=== PATIENT | male | born 1970 | race Caucasian/White ===

== ENCOUNTER 2016-10-26 11:28 | Emergency (ER) | payer MEDICARE, OTHER ==
[~2016-10-26 11:28] MED LIST: BACTRIM DS TAB1 EACH PO; CELEXA40 MG PO; ELAVIL25 MG PO; FLOMAX0.4 MG PO; HCTZ25 MG PO; HYDROCODON-ACE1 EAC6 PO; LEVEMIR100 UNIT/1 SQ; NEURONTIN800 MG PO; NITROQUICK0.4 MG SL; NOVOLOG100 UNIT/2 SQ; PROMETHAZINE12.5 M1 PO; VERAPAMIL ER120 M1 PO; XANAX0.5 MG PO; XYZAL5 MG PO; ZANAFLEX4 MG PO; ZESTRIL20 M1 PO; ZOCOR20 MG PO
== END 2016-10-26 12:56 | disposition home or self-care (01) ==
LOC: ER 11:28
DX: L02.414 Cutaneous abscess of left upper limb (principal); E11.9 Type 2 diabetes mellitus without complications; I10 Essential (primary) hypertension; Z86.14 Personal history of Methicillin resistant Staphylococcus aureus infection; F11.20 Opioid dependence, uncomplicated; F32.9 Major depressive disorder, single episode, unspecified; G89.4 Chronic pain syndrome; F17.220 Nicotine dependence, chewing tobacco, uncomplicated; Z79.899 Other long term (current) drug therapy; Z79.4 Long term (current) use of insulin
CPT/HCPCS: 10061; 87070; 87186; 99070; 99282-25; 99283

== ENCOUNTER 2016-10-27 09:33 | Emergency (ER) | payer MEDICARE, OTHER | END 2016-10-27 09:55 | disposition home or self-care (01) | LOC: ER 09:33 | DX: Z48.817 Encounter for surgical aftercare following surgery on the skin and subcutaneous tissue (principal); Z79.4 Long term (current) use of insulin; Z79.899 Other long term (current) drug therapy | CPT/HCPCS: 99070; 99282 ==

== ENCOUNTER 2016-12-14 14:19 | Emergency (ER) | payer MEDICARE, OTHER | END 2016-12-14 15:18 | disposition home or self-care (01) | LOC: ER 14:19 | DX: L03.012 Cellulitis of left finger (principal); E11.9 Type 2 diabetes mellitus without complications; I10 Essential (primary) hypertension | CPT/HCPCS: 73140; 99283 ==

== ENCOUNTER 2017-01-02 11:48 | Emergency (ER) | payer MEDICARE, OTHER | END 2017-01-02 13:53 | disposition home or self-care (01) | LOC: ER 11:48 | DX: S40.821A Blister (nonthermal) of right upper arm, initial encounter (principal); S20.429A Blister (nonthermal) of unspecified back wall of thorax, initial encounter; E11.9 Type 2 diabetes mellitus without complications; I10 Essential (primary) hypertension; Z86.14 Personal history of Methicillin resistant Staphylococcus aureus infection | CPT/HCPCS: 96372; 99282-25; 99283 ==

== ENCOUNTER 2017-01-21 09:54 | Emergency (ER) | payer MEDICARE, OTHER | END 2017-01-21 12:10 | disposition home or self-care (01) | LOC: ER 09:54 | DX: L02.212 Cutaneous abscess of back [any part, except buttock and flank] (principal); I10 Essential (primary) hypertension; E11.9 Type 2 diabetes mellitus without complications; F41.9 Anxiety disorder, unspecified; G62.9 Polyneuropathy, unspecified; Z79.4 Long term (current) use of insulin; Z79.899 Other long term (current) drug therapy; Z79.891 Long term (current) use of opiate analgesic | CPT/HCPCS: 96372; 99070; 99282-25; 99283 ==